=== PATIENT | female | born 1950 | race Caucasian/White ===

== ENCOUNTER 2016-04-03 09:22 | Day surgery (SDC) | payer OTHER ==
[~2016-04-03] VITALS: Ht 147.3 cm; Wt 57.2 kg
[~2016-04-03 09:22] MED LIST: CALTRATE PLUS1 EACH PO; CIPRO500 MG PO; Colchicine,Colcrys PO; Cozaar PO; DESYREL100 MG PO; DICLOFENAC SODI50 MG PO; Desyrel PO; Duragesic TD; ESTRACE0.5 MG PO; Ecotrin PO; FLAGYL500 MG PO; Feosol PO; Folvite PO; KLONOPIN0.5 M1 PO; KlonoPIN PO; LO-DOSE ASPIRIN81 M1 PO; LOFIBRA,TRIGLI160 MG PO; MINIVELLE1 EACH TD; NEURONTIN600 MG PO; NEXIUM40 MG PO; NIASPAN,SLO-N1000 MG PO; NIASPAN,SLO-NI500 MG PO; Neurontin PO; PERCOCET 7.51 TABLET PO; PREMARIN0.3 MG PO; Pepcid PO; Percocet 5/325,Endoc PO; REMICADE10 MG/ML IV; TRICOR145 MG PO; TYLENOL WITH C1 EACH PO; WELLBUTRIN XL150 MG PO; WELLBUTRIN XL300 MG PO; Wellbutrin SR PO; ZANAFLEX4 MG PO; ZOLOFT100 MG PO; Zoloft PO
== END 2016-04-03 10:38 | disposition home or self-care (01) ==
LOC: PAIN 09:22 → SDC 10:00 → PAIN 10:38
PROC: 3E0S33Z Introduction of Anti-inflammatory into Epidural Space, Percutaneous Approach (ICD-10-PCS; principal; 2016-04-03)
DX: M54.16 Radiculopathy, lumbar region (principal); F41.9 Anxiety disorder, unspecified; M47.816 Spondylosis without myelopathy or radiculopathy, lumbar region; M54.2 Cervicalgia; G89.29 Other chronic pain; M46.1 Sacroiliitis, not elsewhere classified; F17.200 Nicotine dependence, unspecified, uncomplicated; F32.9 Major depressive disorder, single episode, unspecified; E78.5 Hyperlipidemia, unspecified; Z79.82 Long term (current) use of aspirin; Z88.2 Allergy status to sulfonamides; Z88.1 Allergy status to other antibiotic agents; Z88.8 Allergy status to other drugs, medicaments and biological substances; Z91.09 Other allergy status, other than to drugs and biological substances
CPT/HCPCS: J1030; J1100; J2250; J3010

== ENCOUNTER → 2017-08-08 | Outpatient (CLI) | payer OTHER | END | disposition home or self-care (01) | LOC: NUC 08:57 | DX: T84.296A Other mechanical complication of internal fixation device of vertebrae, initial encounter (principal); M41.86 Other forms of scoliosis, lumbar region; M47.897 Other spondylosis, lumbosacral region; M19.072 Primary osteoarthritis, left ankle and foot; M19.071 Primary osteoarthritis, right ankle and foot; Z96.612 Presence of left artificial shoulder joint; Z96.611 Presence of right artificial shoulder joint; Z96.653 Presence of artificial knee joint, bilateral; Z96.89 Presence of other specified functional implants; T84.84XA Pain due to internal orthopedic prosthetic devices, implants and grafts, initial encounter; Z48.811 Encounter for surgical aftercare following surgery on the nervous system; Z98.1 Arthrodesis status | CPT/HCPCS: 78315; A9503 ==

== ENCOUNTER 2017-09-26 07:55 | Day surgery (SDC) | payer OTHER ==
[~2017-09-26] VITALS: Ht 149.9 cm; Wt 58.1 kg
[~2017-09-26 07:55] MED LIST changes: +COLACE CLEAR50 MG PO; +DICLOFENAC SOD100 MG PO; -DICLOFENAC SODI50 MG PO; +ERGOCALCIF50000 UNIT PO; +FOLIC ACID1 MG PO; +LIPITOR20 MG PO
== END 2017-09-26 10:10 | disposition home or self-care (01) ==
LOC: PAIN 07:55 → SDC 08:30 → PAIN 10:10
DX: M54.16 Radiculopathy, lumbar region (principal); M79.7 Fibromyalgia; M19.90 Unspecified osteoarthritis, unspecified site; M96.1 Postlaminectomy syndrome, not elsewhere classified; M99.83 Other biomechanical lesions of lumbar region; M46.1 Sacroiliitis, not elsewhere classified; F17.200 Nicotine dependence, unspecified, uncomplicated; Z88.2 Allergy status to sulfonamides; Z88.1 Allergy status to other antibiotic agents; Z88.8 Allergy status to other drugs, medicaments and biological substances; Z91.048 Other nonmedicinal substance allergy status
CPT/HCPCS: J1100; J2250